=== PATIENT | male | born 1970 | race Caucasian/White ===

== ENCOUNTER 2019-03-27 14:41 | Emergency (ER) | payer OTHER, BC ==
[2019-03-27 14:52] VITALS: BP 137/88; PULSE 91; RESP 18; TEMP 98.3
[2019-03-27] MEDS ORDERED: DIPH,PERTUS(ACELL)TETVAC-LF 0.5 ML VIAL IM ONE (15:02)
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
== END 2019-03-27 16:19 | disposition home or self-care (01) ==
LOC: EC 14:41
DX: T20.06XA Burn of unspecified degree of forehead and cheek, initial encounter (principal); S20.319A Abrasion of unspecified front wall of thorax, initial encounter; F17.200 Nicotine dependence, unspecified, uncomplicated; Z88.1 Allergy status to other antibiotic agents; Z23 Encounter for immunization; V49.59XA Passenger injured in collision with other motor vehicles in traffic accident, initial encounter; W22.12XA Striking against or struck by front passenger side automobile airbag, initial encounter; Y92.410 Unspecified street and highway as the place of occurrence of the external cause
CPT/HCPCS: 90471; 90715; 99284

== ENCOUNTER 2019-12-19 15:55 | Emergency (ER) | payer BC, OTHER ==
[2019-12-19 16:03] VITALS: RESP 18
--- NOTE | 2019-12-19 17:53 | ED ---
Lower Extremity Injury HPI - General Chief Complaint: Extremity Injury, Lower Stated Complaint: bilat leg numbness Time Seen by Provider: 12/19/19 16:15 Source: patient Mode of arrival: wheelchair Limitations: no limitations - History of Present Illness Initial Comments: 49-year-old male patient presents to the emergency department today for evaluation of intermittent bilateral lower extremity numbness, pain, and cold sensation to his feet. Does been going on for the last 3-4 weeks. Patient denies any back pain or back injury. Denies any radiating pain from his back to his legs. Denies any saddle anesthesia or loss of bowel or bladder control. Patient does admit to a history of smoking cigarettes. He did recently seek evaluation for this with the primary care physician who told him he had high cholesterol. Denies any fever or chills. Denies any leg swelling. Patient denies any recent rash, fever, chills, cough, shortness of breath, chest pain, abdominal pain, nausea, vomiting, diarrhea, constipation, back pain, dizziness, weakness, hematuria, dysuria, urinary urgency, urinary frequency, headache, visual changes, or any other complaints. - Related Data Previous Rx's Medication Instructions Recorded Bacitracin Oint 1 applic TOPICAL BID 7 Days #1 tube 03/27/19 Allergies Allergy/AdvReac Type Severity Reaction Status Date / Time cephalexin [From Keflex] Allergy Unknown Verified 12/19/19 16:03 Review of Systems ROS Statement: Those systems with pertinent positive or pertinent negative responses have been documented in the HPI. ROS Other: All systems not noted in ROS Statement are negative. Past Medical History Past Medical History: Hyperlipidemia History of Any Multi-Drug Resistant Organisms: None Reported Past Surgical History: No Surgical Hx Reported Additional Past Surgical History / Comment(s): polyp off tailbone, tendon repair in finger, Past Psychological History: No Psychological Hx Reported Smoking Status: Current every day smoker Past Alcohol Use History: None Reported Past Drug Use History: None Reported General Exam Limitations: no limitations General appearance: alert, in no apparent distress, other (This is a well- developed, well-nourished adult male patient in no acute distress. Vital signs upon presentation are temperature 98.2F, pulse 80, respirations 18, blood pressure 148/86, pulse ox 98% on room air.) Eye exam: Present: normal appearance, PERRL, EOMI. Absent: scleral icterus, conjunctival injection, periorbital swelling ENT exam: Present: normal exam, normal oropharynx, mucous membranes moist Respiratory exam: Present: normal lung sounds bilaterally. Absent: respiratory distress, wheezes, rales, rhonchi, stridor Cardiovascular Exam: Present: regular rate, normal rhythm, normal heart sounds. Absent: systolic murmur, diastolic murmur, rubs, gallop, clicks GI/Abdominal exam: Present: soft, normal bowel sounds. Absent: distended, tenderness, guarding, rebound, rigid Extremities exam: Present: normal inspection, full ROM, normal capillary refill, other (Skin to the feet is cool to touch. Temperature is equal bilaterally. Pedal and posttibial pulses are 2+ and equal bilaterally. There is no calf tenderness. Negative Homans sign. Negative straight leg test.). Absent: tenderness, pedal edema, joint swelling, calf tenderness Back exam: Present: normal inspection. Absent: vertebral tenderness Neurological exam: Present: alert, oriented X3, CN II-XII intact Expanded Speech: Present: fluid speech Sensory exam: Lower Extremity Light Touch: Normal, Lower Extremity Pin Prick: Normal Motor strength exam: RUE: 5, LUE: 5, RLE: 5, LLE: 5 Psychiatric exam: Present: normal affect, normal mood Skin exam: Present: warm, dry, intact, normal color. Absent: rash Course Vital Signs 12/19/19 12/19/19 15:57 18:01 Temperature 98.2 F 98.4 F Pulse Rate 80 83 Respiratory 18 18 Rate Blood Pressure 148/86 140/82 O2 Sat by Pulse 98 98 Oximetry Medical Decision Making - Medical Decision Making 49-year-old male patient presents to the emergency department today for evaluation of intermittent lower extremity numbness, pain, and coldness for the last 3-4 weeks. Physical examination is unremarkable. Skin to the feet is cool to touch. Pulses are intact. Strength is intact. He has no concerning symptoms for cauda equina. Did discuss possibility of vascular insufficiency. He will be discharged to follow-up with vascular surgery for further evaluation. He is instructed to follow-up with his primary care physician for recheck in 1- 2 days. Return parameters were discussed in detail. He verbalizes understanding and agrees with this plan. Disposition Clinical Impression: Paresthesia of both lower extremities, Arterial insufficiency of lower extremity Disposition: HOME SELF-CARE Condition: Good Instructions (If sedation given, give patient instructions): Paresthesia (ED) Additional Instructions: Follow up with vascular specialty as soon as possible. Return to the emergency department for any new, worsening, or concerning symptoms. Is patient prescribed a controlled substance at d/c from ED?: No Referrals: Eugene Randhawa DO [Doctor of Osteopathic Medicine] - 1-2 days Time of Disposition: 17:53
[2019-12-19 18:02] VITALS: BP 140/82; PULSE 83; TEMP 98.4
== END 2019-12-19 18:02 | disposition home or self-care (01) ==
LOC: EC 15:55
DX: I77.1 Stricture of artery (principal); R20.2 Paresthesia of skin; F17.200 Nicotine dependence, unspecified, uncomplicated; Z88.1 Allergy status to other antibiotic agents
CPT/HCPCS: 99283

== ENCOUNTER → 2021-02-21 | Outpatient (CLI) | payer BC ==
[2021-02-21 16:42] LABS: HCT 49.2 % (39.6-50.0); HGB 15.8 g/dL (13.0-17.0); MCH 27.8 pg (27.0-32.0); MCHC 32.1 g/dL (32.0-37.0); MCV 86.5 fL (80.0-97.0); Mean Platelet Volume 10.3 fL (9.5-12.2); Platelet Count 241 X 10*3/uL (140-440); RBC 5.69 X 10*6/uL (4.40-5.60); RDW 12.9 % (11.5-14.5); WBC 9.23 X 10*3/uL (4.50-10.00)
[2021-02-21 17:01] LABS: African American GFR (CKD) 89.6 (60.0-200.0); Anion Gap 4.3 mmol/L (4.00-12.00); BUN/Creat Ratio 10.91 Ratio (12.00-20.00); Calcium 9.2 mg/dL (8.7-10.3); Carbon Dioxide 29.7 mmol/L (21.6-31.8); Chol/HDL Ratio 5.08; LDL Cholesterol,Calculated 69.4 mg/dL (0.0-131.0); Non-African American GFR(CKD) 77.3 (60.0-200.0); Potassium 5.4 mmol/L (3.5-5.5); VLDL Calculation 32.6 mg/dL (5.00-40.00)
== END | disposition home or self-care (01) ==
LOC: LABWHC1 02-05 14:58
PROVIDERS: ATTEND Internal Medicine Cardiovascular Disease
DX: E78.2 Mixed hyperlipidemia (principal)
CPT/HCPCS: 36415; 80048; 80061; 85027

== ENCOUNTER → 2023-07-26 | Outpatient (CLI) | payer BC ==
--- NOTE | 2023-07-26 11:04 | CA ---
Exercise Stress Test Report Name: Doug Lee Exam Date: 07/26/2023 09:33 Exam Location: [place] Stress Ht (in): Wt (lb): BSA: Ordering Phys: Percy Florentino MD Referring Phys: Percy Florentino,, Technologist: RILEY, Age: 52 Gender: M : 1970 Procedure CPT: Indications: R55 SYNCOPE AND COLLAPSE ICD-10 Codes: Patient History: Syncope Medications: Meds past 24 hrs: Pretest Chest Pain: STRESS TEST Jabari Protocol Exercise Duration (min:sec): 06:[address] Depressions (mm): Angina Score: Montejo Score: Resting HR (bpm): 73 Peak HR (bpm): 119 Resting BP (mmHg): 164 / 92 Peak BP (mmHg): 196 / 61 MPHR: 167 Target HR: 142 % MPHR: 71 METS: 7.1 Total Dose: Peak Dose: Atropine: Double Product: 20933 BP Response: Stress Termination: Calf pain and the patient requested to stop Stress Symptoms: No chest pain or symptoms Stress Summary: ECG ANALYSIS Resting ECG: Normal sinus rhythm normal axis normal intervals Stress ECG: Patient exercised on Jabari protocol for 6 minutes achieving 71% of predicted maximal heart rate without chest pain or diagnostic ST segment depression test had to stop because of leg discomfort CONCLUSIONS Average exercise tolerance Inconclusive EKG part of the stress test due to inability to attain target heart rate Dr. Antoine Resendez MD (Electronically Signed) Final Date: 26 July 2023 11:03
== END | disposition home or self-care (01) ==
LOC: RADNMMAIN 08:57
PROVIDERS: ATTEND Family Medicine
DX: R55 Syncope and collapse (principal); R09.89 Other specified symptoms and signs involving the circulatory and respiratory systems; Z82.41 Family history of sudden cardiac death
CPT/HCPCS: 93017

== ENCOUNTER → 2023-08-04 | Outpatient (CLI) | payer BC ==
--- NOTE | 2023-08-04 11:37 | CA ---
Transthoracic Echo Report Name: Doug Lee Age: 52 Gender: M : 1970 Exam Date: 08/04/2023 08:13 Exam Location: [place] Echo Ht (in): 67 Wt (lb): 170 Ordering Physician: Percy Florentino MD Attending/Referring Phys: Engineer First Assistant Susannah Ocampo [facility] Procedure CPT: Indications: R55 SYNCOPE AND COLLAPSE Cardiac Hx: Technical Quality: Fair Contrast 1: Total Dose (mL): Contrast 2: Total Dose (mL): MEASUREMENTS (Male / Female) Normal Values 2D ECHO LV Diastolic Diameter PLAX 5.1 cm 4.2 - 5.9 / 3.9 - 5.3 cm LV Systolic Diameter PLAX 3.5 cm IVS Diastolic Thickness 0.8 cm 0.6 - 1.0 / 0.6 - 0.9 cm LVPW Diastolic Thickness 0.8 cm 0.6 - 1.0 / 0.6 - 0.9 cm LV Relative Wall Thickness 0.3 LVOT Diameter 2.0 cm Ascending Aorta Diameter 2.6 cm M-MODE Aortic Root Diameter MM 2.7 cm LA Systolic Diameter MM 3.0 cm LA Ao Ratio MM 1.1 AV Cusp Separation MM 2.0 cm DOPPLER AV Peak Velocity 129.3 cm/s AV Peak Gradient 6.7 mmHg AV Mean Velocity 87.7 cm/s AV Mean Gradient 3.4 mmHg AV Velocity Time Integral 27.5 cm LVOT Peak Velocity 97.8 cm/s LVOT Peak Gradient 3.8 mmHg LVOT Velocity Time Integral 20.2 cm LVOT Stroke Volume 61.2 cm??? LVOT Stroke Volume Index 32.4 ml/m??? LVOT Cardiac Index 2291.3 cm???/min???m??? AV Area Cont Eq vti 2.2 cm??? AV Area Cont Eq pk 2.3 cm??? Mitral E Point Velocity 51.2 cm/s Mitral A Point Velocity 67.0 cm/s Mitral E to A Ratio 0.8 MV Deceleration Time 216.8 ms LV E' Lateral Velocity 7.7 cm/s Mitral E to LV E' Lateral Ratio 6.7 LV E' Septal Velocity 6.8 cm/s Mitral E to LV E' Septal Ratio 7.5 Right Atrial Pressure 3.0 mmHg FINDINGS Left Ventricle Left ventricular wall thickness normal. Left ventricular cavity size normal. Low normal left ventricular systolic function with no obvious regional wall motion abnormalities. Left ventricular ejection fraction is estimated at 50- 55%. Right Ventricle Mild right ventricular dilatation. Right Atrium Mild right atrial dilatation. Left Atrium Normal left atrial size. Mitral Valve Structurally normal mitral valve. Trace mitral regurgitation. Aortic Valve Trileaflet aortic valve. Thickening of the aortic valve cusps. No aortic valve stenosis or regurgitation. Tricuspid Valve Structurally normal tricuspid valve. No tricuspid regurgitation. Pulmonic Valve Pulmonic valve not well visualized. Trace pulmonic regurgitation. Pericardium No pericardial effusion. Aorta Normal size aortic root and proximal ascending aorta. CONCLUSIONS Normal LV systolic function Mild RV dilatation Previewed by: Dr. Antoine Resendez MD (Electronically Signed) Final Date: 04 August 2023 11:36
== END | disposition home or self-care (01) ==
LOC: RADECHMAIN 08:05
PROVIDERS: ATTEND Family Medicine
DX: I51.7 Cardiomegaly (principal); R55 Syncope and collapse; Z82.41 Family history of sudden cardiac death
CPT/HCPCS: 93225; 93226; 93306

== ENCOUNTER → 2023-08-17 | Outpatient (CLI) | payer BC ==
--- NOTE | 2023-08-18 07:47 | US ---
EXAMINATION TYPE: US arterial LE single level DATE OF EXAM: 08/17/2023 11:00 AM CLINICAL INDICATION: Male, 52 years old with history of I73.9 VASCULAR DISEASE; Pt states left leg pa in History of: Smoker: Yes Hypertension: No Diabetic: No Hyperlipidemia: No TIA/CVA: No Previous Vascular Surgery: Pt states Aortic/left femoral bypass graft in 2019 CAD: No [place]: No Vascular Ulcers: No Doppler Waveforms: Right: Monophasic right posterior tibial and dorsalis pedis Left: Monophasic left dorsalis pedis Right Brachial Pressure: 153 Left Brachial Pressure: 161 Ankle-Brachial Indices: Right: 1.0 Left: 0.9 IMPRESSION: 1. Monophasic and biphasic waveforms within the lower extremities. Significant ratio abnormality to s uggest stenosis however is not evident.
== END | disposition home or self-care (01) ==
LOC: RADUSWWP 10:19
PROVIDERS: ATTEND Family Medicine
DX: I73.9 Peripheral vascular disease, unspecified (principal)
CPT/HCPCS: 93922

== ENCOUNTER 2023-09-13 16:13 | Emergency (ER) | payer BC ==
--- NOTE | 2023-09-13 16:40 | ED ---
General Adult HPI - General Chief complaint: Extremity Problem,Nontraumatic Stated complaint: Right leg pain Time Seen by Provider: 09/13/23 16:19 Source: patient, family, RN notes reviewed Mode of arrival: ambulatory Limitations: no limitations - History of Present Illness Initial comments: 52-year-old male presents to the emergency department for evaluation of right calf pain 3 days. He states that it started on Tuesday and had slightly improved but noticed today when he woke up that it was significantly worse. He denies any trauma, swelling to his leg. He denies any new injuries. Past medical history includes hyperlipidemia. - Related Data Previous Rx's Medication Instructions Recorded Bacitracin Zinc Oint 1 applic TOPICAL BID 7 Days #1 tube 03/27/19 Allergies Allergy/AdvReac Type Severity Reaction Status Date / Time cephalexin [From Keflex] Allergy Unknown Verified 12/19/19 16:03 Review of Systems ROS Statement: Those systems with pertinent positive or pertinent negative responses have been documented in the HPI. ROS Other: All systems not noted in ROS Statement are negative. Past Medical History Past Medical History: Hyperlipidemia History of Any Multi-Drug Resistant Organisms: None Reported Past Surgical History: No Surgical Hx Reported Additional Past Surgical History / Comment(s): polyp off tailbone, tendon repair in finger, femoral bypass Past Psychological History: No Psychological Hx Reported Smoking Status: Current every day smoker Past Alcohol Use History: None Reported Past Drug Use History: None Reported General Exam Limitations: no limitations General appearance: alert, in no apparent distress Course Vital Signs 09/13/23 09/13/23 09/13/23 16:15 17:46 18:28 Temperature 97.8 F 98.1 F 98 F Pulse Rate 75 63 68 Respiratory 16 18 18 Rate Blood Pressure 192/89 168/83 154/87 O2 Sat by Pulse 98 96 99 Oximetry Medical Decision Making - Medical Decision Making Was pt. sent in by a medical professional or institution (, PA, AUTOMATIC NAILING MACHINE OPERATOR, urgent care, hospital, or assisted...) When possible be specific @ -No Did you speak to anyone other than the patient for history (EMS, parent, family, police, friend...)? What history was obtained from this source @ -No Did you review nursing and triage notes (agree or disagree)? Why? @ -I reviewed and agree with nursing and triage notes Were old charts reviewed (outside hosp., previous admission, EMS record, old EKG, old radiological studies, urgent care reports/EKG's, assisted records)? Report findings @ -No old charts were reviewed Differential Diagnosis (chest pain, altered mental status, abdominal pain women, abdominal pain men, vaginal bleeding, weakness, fever, dyspnea, syncope, headache, dizziness, GI bleed, back pain, seizure, CVA, palpatations, mental health, musculoskeletal)? @ -Differential Musculoskeletal Muscular strain, contusion, ligament sprain, fracture, arthritis, septic arthritis, bursitis, cellulitis, muscle spasm, nerve compression, DVT, arterial occlusion, herpes zoster, electrolyte abnormality, tumor.... This is not meant to be in all inclusive list EKG interpreted by me (3pts min.). @ -none X-rays interpreted by me (1pt min.). @ -None done CT interpreted by me (1pt min.). @ -None done U/S interpreted by me (1pt. min.). @ -Ultrasound of the right lower extremity shows no evidence of DVT What testing was considered but not performed or refused? (CT, X-rays, U/S, labs)? Why? @ -None What meds were considered but not given or refused? Why? @ -None Did you discuss the management of the patient with other professionals (professionals i.e. , PA, AUTOMATIC NAILING MACHINE OPERATOR, lab, RT, psych nurse, director of social services, anodiser, teacher, development officer, nurse case management)? Give summary @ -No Was smoking cessation discussed for >3mins.? @ -No Was critical care preformed (if so, how long)? @ -No Were there social determinants of health that impacted care today? How? (Homelessness, low income, unemployed, alcoholism, drug addiction, transportation, low edu. Level, literacy, decrease access to med. care, correction, rehab)? @ -No Was there de-escalation of care discussed even if they declined (Discuss DNR or withdrawal of care, Hospice)? DNR status @ -No What co-morbidities impacted this encounter? (DM, HTN, Smoking, COPD, CAD, Cancer, CVA, ARF, Chemo, Hep., AIDS, mental health diagnosis, sleep apnea, morbid obesity)? @ -None Was patient admitted / discharged? Hospital course, mention meds given and route, prescriptions, significant lab abnormalities, going to OR and other pertinent info. @ -discharged. Patient presented to the emergency department for evaluation of right calf pain. Right calf is tender a localized region without erythema, warmth. No lower extremity edema. DP and PT pulses 2+. Ultrasound was obtained which shows no evidence of DVT. Patient was advised to rest, ice, elevate, utilize anti-inflammatory medications to help with discomfort. Certainly return precautions discussed. Patient received 3 mg the patient's symptoms, discharge. Case discussed with Dr. Samayoa. Undiagnosed new problem with uncertain prognosis? @ -No Drug Therapy requiring intensive monitoring for toxicity (Heparin, Nitro, Insulin, Cardizem)? @ -No Were any procedures done? @ -No Diagnosis/symptom? @ -calf pain Acute, or Chronic, or Acute on Chronic? @ -acute Uncomplicated (without systemic symptoms) or Complicated (systemic symptoms)? @ -uncomplicated Side effects of treatment? @ -No Exacerbation, Progression, or Severe Exacerbation? @ -No Poses a threat to life or bodily function? How? (Chest pain, [place], [place], pneumonia, PE, COPD, DKA, ARF, appy, cholecystitis, CVA, Diverticulitis, Homicidal, Suicidal, threat to staff... and all critical care pts) @ -No Disposition Clinical Impression: Right leg pain Disposition: HOME SELF-CARE Condition: Stable Instructions (If sedation given, give patient instructions): P.R.I.C.E. Treat ment (ED) Additional Instructions: Please follow up with your primary care provider. Return to the emergency department for new or worsening symptoms. Is patient prescribed a controlled substance at d/c from ED?: No Referrals: Percy Florentino MD [Primary Care Provider] - 1-2 days
--- NOTE | 2023-09-13 17:50 | US ---
EXAMINATION TYPE: US venous doppler duplex LE RT DATE OF EXAM: 09/13/2023 4:37 PM COMPARISON: NONE CLINICAL INDICATION: Male, 52 years old with history of pain; Small area of pain in posterior calf x 2 days. No hx of DVT. Not on blood thinners SIDE PERFORMED: Right TECHNIQUE: The lower extremity deep venous system is examined utilizing real time linear array sonog demario with graded compression, doppler sonography and color-flow sonography. VESSELS IMAGED: Common Femoral Vein Deep Femoral Vein Greater Saphenous Vein * Femoral Vein Popliteal Vein Small Saphenous Vein * Proximal Calf Veins (* superficial vessels) Right Leg: No evidence for DVT. No discrete abnormalities seen in area of pain IMPRESSION: Grayscale, color doppler, spectral doppler imaging performed of the deep veins of the lo wer extremities. There is normal flow, compressibility, vascular waveforms.
[2023-09-13 18:10] VITALS: RESP 18
[2023-09-13 18:33] VITALS: BP 154/87; PULSE 68; TEMP 98
== END 2023-09-13 18:58 | disposition home or self-care (01) ==
LOC: EC 16:13
DX: M79.604 Pain in right leg (principal); F17.200 Nicotine dependence, unspecified, uncomplicated; Z88.1 Allergy status to other antibiotic agents
CPT/HCPCS: 99283

== ENCOUNTER 2023-10-29 18:20 | Emergency (ER) | payer BC ==
[2023-10-29] MEDS: LIDOCAINE 1% INJ 10MG/ML (20 ML MDV) SQ ONE (19:03)
[2023-10-29] MEDS: BACITRACIN OINT 1 EACH PACKET TOPICAL ONE (19:21)
[2023-10-29] MEDS: LIDOCAINE/EPINEPHR/TETRACAINE 5 ML BOTTLE TOPICAL ONE (19:36)
--- NOTE | 2023-10-29 19:39 | ED ---
Lower Extremity Injury HPI - General Chief Complaint: Extremity Injury, Lower Stated Complaint: Toe Pain Time Seen by Provider: 10/29/23 18:36 Source: patient Mode of arrival: ambulatory Limitations: no limitations - History of Present Illness Initial Comments: 52-year-old male presenting with chief complaint of ingrown nail. Patient has been having pain to the right big toe for the last 2 weeks due to this ingrown nail. He states that he had 1 several years ago that was removed by a piece dye worker, he does not currently follow with podiatry. No injury or trauma. No fevers or chills. No red streaking up the foot. No discharge. - Related Data Previous Rx's Medication Instructions Recorded Bacitracin Zinc Oint 1 applic TOPICAL BID 7 Days #1 tube 03/27/19 Bacitracin Zinc Oint 1 applic TOPICAL DAILY #28 gm 10/29/23 Doxycycline [Vibramycin] 100 mg PO BID 7 Days #14 capsule 10/29/23 Allergies Allergy/AdvReac Type Severity Reaction Status Date / Time cephalexin [From Keflex] Allergy Unknown Verified 10/29/23 18:32 Review of Systems ROS Statement: Those systems with pertinent positive or pertinent negative responses have been documented in the HPI. ROS Other: All systems not noted in ROS Statement are negative. Past Medical History Past Medical History: Hyperlipidemia History of Any Multi-Drug Resistant Organisms: None Reported Past Surgical History: No Surgical Hx Reported Additional Past Surgical History / Comment(s): polyp off tailbone, tendon repair in finger, aortic femoral bypass Past Psychological History: No Psychological Hx Reported Smoking Status: Current every day smoker Past Alcohol Use History: None Reported Past Drug Use History: None Reported General Exam Limitations: no limitations General appearance: alert, in no apparent distress Head exam: Present: atraumatic, normocephalic Eye exam: Present: normal appearance Neck exam: Present: normal inspection Respiratory exam: Absent: respiratory distress Cardiovascular Exam: Present: regular rate Right Foot/Toe exam: Present: full ROM, tenderness (big toe, ingrown nail) Neurological exam: Present: alert, oriented X3 Psychiatric exam: Present: normal affect, normal mood Skin exam: Present: warm, dry Course Vital Signs 10/29/23 10/29/23 18:28 19:47 Temperature 98.4 F 96.5 F L Pulse Rate 77 72 Respiratory 18 16 Rate Blood Pressure 170/81 134/84 O2 Sat by Pulse 100 Oximetry Procedures - Procedures Initial comment: R big toe- ingrown nail removal - Nerve Block Consent Obtained: verbal consent Local Anesthetic Used: Lidocaine 1% Side: right Nerve Blocks: digital (R first toe) Medical Decision Making - Medical Decision Making 52-year-old male presenting chief complaint of right big toe ingrown nail. Digital block is performed and ingrown nail is removed. Patient is started on doxycycline. Instructed to follow-up with piece dye worker. Discharged home. Follow-up with PCP. Report back to ER with any new or worsening symptoms. Discussed return parameters and answered all questions. Patient conveyed verbal understanding and agreed to the plan. I discussed this case in detail with my attending Dr. Samuel Was pt. sent in by a medical professional or institution (, PA, [employer], urgent care, hospital, or usp...) When possible be specific @ -No Did you speak to anyone other than the patient for history (EMS, parent, family, police, friend...)? What history was obtained from this source @ -No Did you review nursing and triage notes (agree or disagree)? Why? @ -I reviewed and agree with nursing and triage notes Were old charts reviewed (outside hosp., previous admission, EMS record, old EKG, old radiological studies, urgent care reports/EKG's, usp records)? Report findings @ -No old charts were reviewed Differential Diagnosis (chest pain, altered mental status, abdominal pain women, abdominal pain men, vaginal bleeding, weakness, fever, dyspnea, syncope, headache, dizziness, GI bleed, back pain, seizure, CVA, palpatations, mental health, musculoskeletal)? @ -Differential includes ingrown nail, cellulitis, paronychia, this is not an all-inclusive list EKG interpreted by me (3pts min.). @ -As above X-rays interpreted by me (1pt min.). @ -None done CT interpreted by me (1pt min.). @ -None done U/S interpreted by me (1pt. min.). @ -None done What testing was considered but not performed or refused? (CT, X-rays, U/S, labs)? Why? @ -None What meds were considered but not given or refused? Why? @ -None Did you discuss the management of the patient with other professionals (professionals i.e. , PA, [employer], lab, RT, psych nurse, social work program coordinator, [employer], teacher, philanthropy officer, behavioral health case manager)? Give summary @ -No Was smoking cessation discussed for >3mins.? @ -No Was critical care preformed (if so, how long)? @ -No Were there social determinants of health that impacted care today? How? (Homelessness, low income, unemployed, alcoholism, drug addiction, transportation, low edu. Level, literacy, decrease access to med. care, shelter, rehab)? @ -No Was there de-escalation of care discussed even if they declined (Discuss DNR or withdrawal of care, Hospice)? DNR status @ -No What co-morbidities impacted this encounter? (DM, HTN, Smoking, COPD, CAD, Cancer, CVA, ARF, Chemo, Hep., AIDS, mental health diagnosis, sleep apnea, morbid obesity)? @ -None Was patient admitted / discharged? Hospital course, mention meds given and route, prescriptions, significant lab abnormalities, going to OR and other pertinent info. @ -Discharged home, see above for details Undiagnosed new problem with uncertain prognosis? @ -No Drug Therapy requiring intensive monitoring for toxicity (Heparin, Nitro, Insulin, Cardizem)? @ -No Were any procedures done? @ -Removal of ingrown nail Diagnosis/symptom? @ -Ingrown nail Acute, or Chronic, or Acute on Chronic? @ -Acute Uncomplicated (without systemic symptoms) or Complicated (systemic symptoms)? @ -Uncomplicated Side effects of treatment? @ -No Exacerbation, Progression, or Severe Exacerbation? @ -No Poses a threat to life or bodily function? How? (Chest pain, [place], [place], pneumonia, PE, COPD, DKA, ARF, appy, cholecystitis, CVA, Diverticulitis, Homicidal, Suicidal, threat to staff... and all critical care pts) @ -No Disposition Clinical Impression: Ingrown toenail Disposition: HOME SELF-CARE Condition: Good Instructions (If sedation given, give patient instructions): Ingrown Nail (ED) Additional Instructions: Follow-up with podiatry and PCP. Report back to ER with any new or worsening symptoms. Change the bandage daily. Monitor for signs of infection, including but not limited to redness, swelling, warmth, tenderness, discharge, fevers. Prescriptions: Bacitracin Zinc Oint 1 applic TOPICAL DAILY #28 gm Doxycycline [Vibramycin] 100 mg PO BID 7 Days #14 capsule Is patient prescribed a controlled substance at d/c from ED?: No Referrals: Percy Florentino MD [Primary Care Provider] - 1-2 days Grace Umaña DPM [STAFF PHYSICIAN] - 1-2 days Time of Disposition: 19:37
[2023-10-29 20:05] VITALS: BP 134/84; PULSE 72; RESP 16; TEMP 96.5
== END 2023-10-29 19:54 | disposition home or self-care (01) ==
LOC: EC 18:20
DX: L60.0 Ingrowing nail (principal); F17.200 Nicotine dependence, unspecified, uncomplicated; Z88.8 Allergy status to other drugs, medicaments and biological substances
CPT/HCPCS: 99283; 11750; J2001